=== PATIENT | female | born 1935 | race Caucasian/White ===

== ENCOUNTER 2020-04-15 20:33 | Emergency (ER) | payer MEDICARE, OTHER ==
--- NOTE | 2020-04-15 21:21 | EDM.PDOC ---
ED HPI GENERAL MEDICAL PROBLEM - General Chief Complaint: General Stated Complaint: bleeding from lower wisdom tooth site Time Seen by Provider: 04/15/20 20:35 Source of Information: Reports: Patient History Limitations: Reports: No Limitations - History of Present Illness INITIAL COMMENTS - FREE TEXT/NARRATIVE: Pt had left lower wisdom tooth extracted today Now with increased bleeding Is on ASA Onset: Today Context: Reports: Other (Dental extraction) - Related Data Allergies Allergy/AdvReac Type Severity Reaction Status Date / Time celecoxib [From Celebrex] Allergy Other Verified 04/15/20 20:48 gemfibrozil Allergy Other Verified 04/15/20 20:48 lanolin Allergy Other Verified 04/15/20 20:48 latanoprost Allergy Other Verified 04/15/20 20:48 Penicillins Allergy Hives Verified 04/15/20 20:43 [id number] Reductase Allergy Edema Verified 04/15/20 20:43 Inhibitor Sulfa (Sulfonamide Allergy Anaphylactic Verified 04/15/20 20:43 Antibiotics) Shock Social & Family History - Tobacco Use Smoking Status *Q: Never Smoker Second Hand Smoke Exposure: No - Caffeine Use Caffeine Use: Reports: Coffee Other Caffeine Use: 2 cu[s - Recreational Drug Use Recreational Drug Use: No ED ROS GENERAL - Review of Systems Review Of Systems: See Below HEENT: Reports: Other (Dental extraction bleeding) ED EXAM, GENERAL - Physical Exam Exam: See Below Throat/Mouth: Other (Left lower extraction site with moderate ooze No active bleeding) Course - Vital Signs Last Recorded V/S: Last Vital Signs Temp 97.9 F 04/15/20 20:36 Pulse 104 H 04/15/20 20:36 Resp 18 04/15/20 20:36 BP 161/63 H 04/15/20 20:36 Pulse Ox 96 04/15/20 20:36 Departure - Departure Time of Disposition: 21:20 Disposition: Home, Self-Care 01 Clinical Impression: Post-op bleeding - Discharge Information *PRESCRIPTION DRUG MONITORING PROGRAM REVIEWED*: Not Applicable *COPY OF PRESCRIPTION DRUG MONITORING REPORT IN PATIENT ASHA: Not Applicable Referrals: Danyelle Jack PA [Primary Care Provider] - Additional Instructions: Follow up with dentist Use 2 X 2 gauze for pressure Sepsis Event Note (ED) - Evaluation Sepsis Screening Result: No Definite Risk - Focused Exam Vital Signs: Vital Signs Temp Pulse Resp BP Pulse Ox 04/15/20 20:36 97.9 F 104 H 18 161/63 H 96
== END 2020-04-15 22:14 | disposition home or self-care (01) ==
LOC: LL.ED 20:33
DX: K91.840 Postprocedural hemorrhage of a digestive system organ or structure following a digestive system procedure (principal); Z88.6 Allergy status to analgesic agent; Z88.0 Allergy status to penicillin; Z88.8 Allergy status to other drugs, medicaments and biological substances; Z88.2 Allergy status to sulfonamides
CPT/HCPCS: 99283

== ENCOUNTER 2023-11-30 02:10 | Emergency (ER) | payer MEDICARE, OTHER ==
[2023-11-30] MEDS ORDERED: Sodium Chloride 0.9% 10 ML Syringe FLUSH PRN (02:19)
[2023-11-30 02:28] LABS: BASOPHILS ABSOLUTE AUTO 0.03 K/uL (0.00-0.20); BASOPHILS PERCENT AUTO 0.3 % (0.0-2.0); EOSINOPHILS ABSOLUTE AUTO 0.26 K/uL (0.00-0.50); EOSINOPHILS PERCENT AUTO 2.9 % (0.0-5.0); HEMATOCRIT 36.2 % (34.0-46.0); HEMOGLOBIN 11.7 g/dL (11.7-15.5); LYMPHOCYTES ABSOLUTE AUTO 3.21 K/uL (0.50-3.50); LYMPHOCYTES PERCENT AUTO 35.6 % (10.0-50.0); MEAN CORPUSCULAR HEMOGLOBIN 28.8 pg (28.2-33.3); MEAN CORPUSCULAR HGB CONC 32.3 g/dL (31.7-36.0); MEAN CORPUSCULAR VOLUME 89.2 fL (84.0-98.0); MONOCYTES ABSOLUTE AUTO 0.85 K/uL (0.00-1.00); MONOCYTES PERCENT AUTO 9.4 % (2.0-14.0); NEUTROPHILS ABSOLUTE AUTO 4.66 K/uL (1.40-7.00); NEUTROPHILS PERCENT AUTO 51.8 % (45.0-80.0); PLATELET COUNT,PLT 339 K/uL (150-350); RED BLOOD CELL COUNT 4.06 M/uL (3.77-5.09); RED CELL DISTRIBUTION WIDTH 13.7 % (11.2-14.1)
[2023-11-30] MEDS: Nitroglycerin 0.4 MG Tab.SL ONE (02:36)
[2023-11-30] MEDS: Aspirin 81 MG Tab.Chew ONE (02:36)
[2023-11-30 02:50] LABS: ALBUMIN 4.1 g/dL (3.4-5.0); BILIRUBIN TOTAL 0.4 mg/dL (0.2-1.0); CALCIUM 9.4 mg/dL (8.5-10.1); CARBON DIOXIDE,CO2 28.4 mmol/L (21.0-32.0); CREATININE 0.74 mg/dL (0.51-1.17); EST CRCL DRUG DOSING (CG) 43.47 mL/min; POTASSIUM,K 4.1 mmol/L (3.5-5.1); PROTEIN TOTAL,TP 8.1 g/dL (6.4-8.2)
[2023-11-30 02:51] LABS: ANION GAP 11.7 meq/L (7-15)
[2023-11-30] MEDS: Hydrochlorothiazide 25 MG Tab PO ONE (02:59)
[2023-11-30] MEDS: cloNIDine 0.1 MG Tab PO ONE (02:59)
[2023-11-30] MEDS: Heparin Sodium 5,000 Units/ML Vial IVPUSH ONE (06:15)
[2023-11-30] MEDS: Heparin Sodium/0.45% NaCl 500 ML IV SCH (06:18)
[2023-11-30 06:54] LABS: PROTHROMBIN TIME 10.1 SEC (9.0-11.1); PTT,PARTIAL THROMBOPLSTIN TIME 28.9 SEC (23.6-29.8)
== END 2023-11-30 08:30 ==
LOC: LL.ED 02:10
DX: R07.89 Other chest pain (principal); I10 Essential (primary) hypertension; R79.89 Other specified abnormal findings of blood chemistry; K21.9 Gastro-esophageal reflux disease without esophagitis; E03.9 Hypothyroidism, unspecified; Z79.899 Other long term (current) drug therapy; Z88.2 Allergy status to sulfonamides; Z88.8 Allergy status to other drugs, medicaments and biological substances; Z91.048 Other nonmedicinal substance allergy status; Z88.0 Allergy status to penicillin
CPT/HCPCS: 36415; 71045; 80053; 83605; 83735; 83880; 84484; 85025; 85379; 85610; 85730; 93005; 96365; 96366; 99285-25; A9270-GY; J1644

== ENCOUNTER 2024-10-13 11:44 | Emergency (ER) | payer MEDICARE, OTHER | END 2024-10-13 13:40 | LOC: LL.ED 11:44 → SUPCPDRO 11:44 → LL.ED 13:40 | DX: S70.02XA Contusion of left hip, initial encounter (principal); I10 Essential (primary) hypertension; I25.10 Atherosclerotic heart disease of native coronary artery without angina pectoris; I25.2 Old myocardial infarction; J44.9 Chronic obstructive pulmonary disease, unspecified; E03.9 Hypothyroidism, unspecified; Z86.16 Personal history of COVID-19; Z95.1 Presence of aortocoronary bypass graft; Z79.890 Hormone replacement therapy; Z79.899 Other long term (current) drug therapy; Z79.1 Long term (current) use of non-steroidal anti-inflammatories (NSAID); Z79.82 Long term (current) use of aspirin; Z88.2 Allergy status to sulfonamides; Z88.0 Allergy status to penicillin; Z88.8 Allergy status to other drugs, medicaments and biological substances; Z88.1 Allergy status to other antibiotic agents; W19.XXXA Unspecified fall, initial encounter | CPT/HCPCS: 99283 ==